=== PATIENT | male | born 1995 | race Two or more races ===

== ENCOUNTER 2020-08-20 20:56 | Emergency (ER) | payer SELFPAY ==
[~2020-08-20] VITALS: Ht 167.6 cm; Wt 49.9 kg
--- NOTE | 2020-08-20 21:10 | NUR ---
PT CAME TO THE ER C/O HEADACHE W/ NAUSEA X 10 DAYS. PT AAOX4, SPEAKING IN FULL SENTENCES. RESPIRATIONS EVEN AND UNLABORED. PT CONNECTED TO THE MONITOR AND POX
[2020-08-20] MEDS ORDERED: diphenhydrAMINE HCL 50 MG/ML VIAL ONE (21:12)
[2020-08-20] MEDS ORDERED: METOCLOPRAMIDE HCL 10 MG/2 ML VIAL ONE (21:13)
[2020-08-20] MEDS ORDERED: IV NS 0.9% 1,000 ML BAG IV ONE (21:30)
[2020-08-20] MEDS ORDERED: diphenhydrAMINE HCL 50 MG/ML VIAL IV ONE (21:30)
[2020-08-20] MEDS ORDERED: IV NS 0.9% 250 ML BAG IV ONE (21:30)
[2020-08-20] MEDS ORDERED: METOCLOPRAMIDE HCL 10 MG/2 ML VIAL IV ONE (21:30)
[2020-08-20] MEDS ORDERED: IBUP-1953 PO (22:42)
--- NOTE | 2020-08-20 22:45 | NUR ---
Patient discharged to home in stable condition. Written and verbal after care instructions given. Patient verbalizes understanding of instruction. Pt ambulatory w/ steady gait
[2020-08-20 23:04] VITALS: BP 118/91
== END 2020-08-20 23:04 | disposition home or self-care (01) ==
LOC: ER 21:01
DX: R51.9 Headache, unspecified (principal); R42 Dizziness and giddiness
CPT/HCPCS: 96361; 96374; 96375; 99284; J1200; J2765; J7030